=== PATIENT | female | born 1940 | race Hispanic/Latino ===

== ENCOUNTER 2016-08-31 12:37 | Outpatient (CLI) | payer MEDICARE ==
--- NOTE | 2016-08-31 13:33 | Mammography Report ---
BONE DENSITY STUDY: DEFINITIONS: BMD = Bone Mineral Density T-score = BMD related to mean peak bone mass of young adult (mean expressed in Standard Deviation) Z-score = Age matched BMD expressed in SD World Health Organization (WHO) Diagnostic Criteria Normal T-score > -1 SD Osteopenia T-score between -1 and -2.4 SD Osteoporosis T-score -2.5 SD or below FINDINGS: The weighted average BMD of lumbar spine L1-L4 is 0.844 with a T-score of -1.8. The weighted average BMD of hip is 0.615 with a T-score of -2.7. IMPRESSION: The patient's T-score is diagnostic for osteoporosis and high relative risk for fracture. NOTE: BMD is not the only risk factor for fracture; also consider factors such as the patient's age, risk of falling, previous osteoporotic fracture, family history of osteoporotic fractures, current smoker, and low body weight. Ramos's triangle is a region of interest in femur, predominantly of trabecular bone. It is not a true anatomic site, and [facility] does not recommend its use clinically.
== END 2016-08-31 12:38 | disposition home or self-care (01) ==
LOC: MAMMO 12:37
PROVIDERS: ATTEND Specialist
DX: M81.0 Age-related osteoporosis without current pathological fracture (principal)
CPT/HCPCS: 77080

== ENCOUNTER 2016-10-26 09:39 | Day surgery (SDC) | payer MEDICARE ==
[2016-10-26] MEDS ORDERED: RECLAST IV ONE (09:58)
[2016-10-26 10:10] VITALS: BP 114/52
[2016-10-26 10:35] LABS: Albumin 4.1 g/dL (3.9-5); Albumin/Globulin Ratio 1.3 %; Bilirubin,Total 0.6 mg/dL (0.1-1.2); Calcium 10.1 mg/dL (8.4-10.2); Chloride 103.1 mmol/L (98-107); Potassium 3.6 mmol/L (3.6-5.0); Total Protein 7.3 g/dL (6.3-8.2)
== END 2016-10-26 11:20 | disposition home or self-care (01) ==
LOC: OPU 09:39 → EDSTATUS 10:30 → OPU 11:20
PROVIDERS: ATTEND Specialist
DX: M81.0 Age-related osteoporosis without current pathological fracture (principal); Z53.8 Procedure and treatment not carried out for other reasons
CPT/HCPCS: 36415; 80053